=== PATIENT | female | born 1940 | race Hispanic/Latino ===

== ENCOUNTER 2025-02-04 19:52 | Observation (INO) | payer OTHER ==
[2025-02-04 20:48] LABS: Absolute Lymphocytes (CBC) 2.1 K/uL (0.7-4.9); Hematocrit 39.6 % (36.0-45.0); Hemoglobin 13.4 g/dL (12.0-15.0); MCH 31.2 pg (27.0-35.0); MCHC 33.9 g/dL (32.0-36.0); MCV 92.2 fL (80-100); MPV 8.5 fL (7.6-11.3); Nucleated RBC Absolute Count 0.0 (0-0); Nucleated Red Blood Cells % 0.0 % (0-0); RBC Red Blood Cell Count 4.30 M/uL (3.86-4.86); White Blood Count 5.50 thou/uL (4.3-10.9)
[2025-02-04] MEDS ORDERED: NA CHLORIDE 0.9% 500 ML ONE (20:50)
[2025-02-04 21:00] LABS: PT Prothrombin Time 11.3 SECONDS (10-13.0); Protime INR 1.0
[2025-02-04 21:16] LABS: ALT/SGPT 23 U/L (13-56); AST/SGOT 18 U/L (15-37); Albumin 3.3 g/dL (3.4-5.0); Albumin/Globulin Ratio 1.2 (1.1-1.8); Alkaline Phosphatase 118 U/L (45-117); Anion Gap 7.8 mEq/L (5.0-15.0); BUN Blood Urea Nitrogen 17 mg/dL (7-18); Globulin 2.7 g/dL (2.3-3.5); Glucose Level 86 mg/dL (74-106); Magnesium 2.1 mg/dL (1.6-2.4); NT PRO-BNP 193 pg/mL (<450); Potassium 3.8 mEq/L (3.5-5.1); Troponin High Sensitivity 5.7 pg/mL (<58.9)
--- NOTE | 2025-02-04 21:17 | RAD REPORT ---
EXAM: CT CHEST, ABDOMEN AND PELVIS WITHOUT CONTRAST CLINICAL INDICATION: fall, spinal injury TECHNIQUE: CT chest, abdomen and pelvis was performed without contrast, as per department protocol. A xial, sagittal and coronal reconstructions were obtained. One or more of the following dose reduction techniques were used: Automated exposure control, adjustment of the mA and/or kV according to patient size, and/or iterative reconstruction. Unless otherwise specified, incidental findings do not require dedicated imaging follow-up. Examination is limited by the lack of intravenous contrast material. COMPARISON: No prior exam. FINDINGS: LUNGS: No evidence of airspace or interstitial process. No nodules. Mild linear atelectasis in both l ksenia bases. PLEURA: No pleural effusion. No pneumothorax. MEDIASTINUM AND LYMPH NODES: No mediastinal mass or fluid collection. Normal size mediastinal, hilar, and axillary lymph nodes. Coronary atherosclerosis. OSSEOUS STRUCTURES AND CHEST WALL: Intact. LIVER: Normal in size and contour. No focal lesion or biliary dilatation. Cholelithiasis. PANCREAS: No mass, ductal dilation, or arabella-pancreatic fluid. SPLEEN: Normal size. No focal lesion. ADRENALS: Normal; no mass. KIDNEYS: Normal size and contour. No hydronephrosis. URINARY BLADDER: Normal contour. GASTROINTESTINAL TRACT: No bowel obstruction, free air, significant free fluid or abscess. Moderate stool is retained throughout the colon. APPENDIX: Normal appendix. LYMPH NODES: No lymphadenopathy. MUSCULOSKELETAL: Moderate degenerative change with dextroscoliosis lumbar spine. OTHER: 33 mm right ovarian follicle. IMPRESSION: No acute abnormalities seen in the chest, abdomen or pelvis. Cholelithiasis.
[2025-02-04 21:19] LABS: Bilirubin Indirect, Calculated 0.2 mg/dL (0.2-0.8); Thyroid Stimulating Hormone 9.980 uIU/mL (0.358-3.740)
--- NOTE | 2025-02-04 21:44 | RAD REPORT ---
EXAMINATION: ONE VIEW CHEST XR CLINICAL INDICATION: syncope TECHNIQUE: Frontal chest projection is submitted. Examination is limited by patient positioning and t echnique. COMPARISON: 08/30/2012 FINDINGS: Mild linear atelectasis is seen in the left lung base. The lungs are otherwise clear. The heart is no rmal in size. No displaced fractures identified. Diffuse osteopenia. IMPRESSION: No acute intrathoracic abnormalities.
--- NOTE | 2025-02-05 01:54 | ER ---
Nurse's Notes [facility] Name: Denis Guy Age: 84 yrs Sex: Female : 1940 Arrival Date: 02/04/2025 Time: 19:52 Bed 13 Private MD: Diagnosis: Syncope and collapse, acute fall at home, uncontrolled hypertension Presentation: 02/04 20:18 Chief complaint: EMS states: toned out for fall with AMS. Patient was on the phone with me1 family and they heard what sounded like her falling then she wouldn't answer. Family called pd for a wellness check and they ended up kicking in the door and found patient on the floor, awake but confused. Patient started to remember some things and reports that she took an ambien that had been prescribed to her a long time ago but that she doesn't normally take. ALUMINUM POLISHER patient was A\T\OX4 again and Denies any pain. No signs of injury noted on assessment. 20g to LFA established by EMS. Coronavirus screen: Vaccine status: Patient reports being unvaccinated. Ebola Screen: No symptoms or risks identified at this time. Initial Sepsis Screen: Does the patient meet any 2 criteria? No. Patient's initial sepsis screen is negative. Does the patient have a suspected source of infection? No. Patient's initial sepsis screen is negative. Risk Assessment: Do you want to hurt yourself or someone else? Patient reports no desire to harm self or others. Onset of symptoms was February 04, 2025. 20:18 Method Of Arrival: EMS: [place] [id number] 20:18 Acuity: AVIVA 3 me1 Triage Assessment: 20:22 General: Appears in no apparent distress. well groomed, well developed, well nourished, me1 Behavior is calm, cooperative, appropriate for age. Pain: Denies pain. EENT: No signs and/or symptoms were reported regarding the EENT system. Neuro: Level of Consciousness is awake, alert, obeys commands, Oriented to person, place, time, situation, Appropriate for age. Cardiovascular: Patient's skin is warm and dry. Respiratory: Airway is patent Respiratory effort is even, unlabored, Respiratory pattern is regular, symmetrical. GI: No signs and/or symptoms were reported involving the gastrointestinal system. : No signs and/or symptoms were reported regarding the genitourinary system. Derm: Skin is intact, is healthy with good turgor, Skin is normal. Musculoskeletal: Circulation, motion, and sensation intact. Range of motion: intact in all extremities. Injury Description: unwitnessed fall. Historical: - Allergies: 20:22 No Known Allergies; me1 - PMHx: 20:22 Hypothyroidism; Dementia; Bipolar disorder; Schizophrenia; me1 - PSHx: 20:22 Total abdominal hysterectomy; me1 - Immunization history:: Adult Immunizations up to date. - Infectious Disease History:: Denies. - Social history:: Smoking status: Patient denies any tobacco usage or history of. - Family history:: not pertinent. Screenin:23 [facility] ED Fall Risk Assessment (Adult) History of falling in the last 3 months, al1 including since admission Yes- single mechanical fall (1 pt) Confusion or Disorientation Yes (5 pts) Intoxicated or Sedated No (0 pts) Impaired Gait No (0 pts) Mobility Assist Device Used No (0 pt) Altered Elimination No (0 pt) Score/Fall Risk Level 0 - 2 = Low Risk Maintained a safe environment, Provided non-skid footwear, Hourly rounding (assess needs \T\ fall precautionary measures) done. Abuse screen: Denies threats or abuse. Nutritional screening: No deficits noted. Tuberculosis screening: No symptoms or risk factors identified. Assessment: 20:23 Reassessment: See triage assessment. me1 22:00 Reassessment: Patient and/or family updated on plan of care and expected duration. Pain nh2 level reassessed. Patient is alert, oriented x 3, equal unlabored respirations, skin warm/dry/pink. Patient denies pain at this time. 22:00 Neuro: Level of Consciousness is awake, alert, obeys commands. Cardiovascular: nh2 Patient's skin is warm and dry. Rhythm is sinus rhythm. Respiratory: Respiratory effort is even, unlabored. GI: Abdomen is round non-distended. : No signs and/or symptoms were reported regarding the genitourinary system. EENT: No signs and/or symptoms were reported regarding the EENT system. Derm: Skin is fragile, Skin is pink, warm \T\ dry. Musculoskeletal: Circulation, motion, and sensation intact. 22:17 Reassessment: non-slip socks applied. assisted to the restroom, ambulatory with help of nh2 family and RN. 22:25 Reassessment: patient back in bed from restroom. reconnected monitor, call light placed nh2 within reach. denies needs or concerns. 02/05 01:15 Reassessment: Patient appears in no apparent distress at this time. Patient and/or km10 family updated on plan of care and expected duration. Pain level reassessed. Patient is alert, oriented x 3, equal unlabored respirations, skin warm/dry/pink. assuming care as primary RN at this time. 04:28 Reassessment: Patient appears in no apparent distress at this time. No changes from [facility] previously documented assessment. Patient and/or family updated on plan of care and expected duration. Pain level reassessed. 06:14 Reassessment: Patient appears in no apparent distress at this time. No changes from [facility] previously documented assessment. Patient and/or family updated on plan of care and expected duration. Pain level reassessed. Vital Signs: 02/04 20:18 BP 205 / 83; Pulse 64; Resp 18; Temp 97.5; Pulse Ox 98% ; Weight 53.52 kg; Height 5 ft. me1 4 in. ; Pain 0/10; 21:00 BP 209 / 80; Pulse 65; Resp 15; Pulse Ox 98% ; me1 21:56 BP 182 / 77; Pulse 65; Resp 20; Pulse Ox 99% ; me1 22:20 BP 172 / 76; Pulse 72; Resp 18; Pulse Ox 99% on R/A; nh2 02/05 01:15 BP 154 / 59; Pulse 56; Resp 14 S; Pulse Ox 98% ; 10 04:28 BP 120 / 44; Pulse 54; Resp 14 S; Pulse Ox 97% ; 10 02/04 20:18 Body Mass Index 20.25 (53.52 kg, 162.56 cm) al1 02/04 20:18 Pain Scale: Adult me1 [place] Coma Score: 21:41 Eye Response: spontaneous(4). Verbal Response: oriented(5). Motor Response: obeys sp4 commands(6). Total: 15. NIH Stroke Scale Scores: 21:41 NIHSS Score: 0 sp4 ED Course: 02/04 20:08 Patient arrived in ED. im 20:18 Lizet Yap, RN is Primary Nurse. al1 20:19 Antoine Scott MD is Attending Physician. sp4 20:22 Triage completed. me1 20:22 Arm band placed on Patient placed in an exam room. me1 20:23 Patient has correct armband on for positive identification. Bed in low position. Call me1 light in reach. Side rails up X2. Provided Education on: POC. Verbalized understanding.. Client placed on continuous cardiac and pulse oximetry monitoring. NIBP monitoring applied. front desk monitor on. Pulse ox on. NIBP on. 20:23 No provider procedures requiring assistance completed. Maintain EMS IV. Dressing me1 intact. Good blood return noted. Site clean \T\ dry. Gauge \T\ site: 20g LFA. Flushed with 10 mL NS. 20:41 Initial lab(s) drawn, by al, sent to lab. me1 20:41 Basic Metabolic Panel Sent. me1 20:41 CBC with Diff Sent. me1 20:41 LFT's Sent. me1 20:41 Magnesium Sent. me1 20:41 NT PRO-BNP Sent. me1 20:41 PT-INR Sent. me1 20:53 EKG done, by ED staff, reviewed by Antoine Scott MD. me1 20:56 CT Chest Abdomen Pelvis W/O Contrast In Process Unspecified. EDMS 21:17 XRAY Chest (1 view) In Process Unspecified. EDMS 02/05 01:53 Michael Keller MD is Hospitalizing Provider. sp4 02:31 Head C Spine Mpr Wo Con In Process Unspecified. EDMS 06:15 Report given to Heidy CARLSON. km10 06:15 Patient admitted, IV remains in place. km10 Administered Medications: 02/04 21:17 Drug: NS 0.9% IV 500 ml 500 ml IV at 1 bolus once; to be given as a bolus over 30 me1 minutes Volume: 500 ml; Route: IV; Rate: 1 bolus; Site: left forearm; 21:56 Follow up: Response: No adverse reaction; IV Status: Completed infusion me1 21:17 Drug: cloNIDine PO 0.2 mg PO once Route: PO; me1 22:10 Follow up: Response: No adverse reaction; Blood pressure is lowered nh2 02/05 01:55 CANCELLED (Physician Discretion): clonidine0.1 mg PO once sp4 02:36 Drug: Losartan PO 25 mg PO once Route: PO; km10 04:29 Follow up: Response: No adverse reaction km10 Medication: 02/04 20:23 VIS not applicable for this client. me1 Outcome: 02/05 01:54 Decision to Hospitalize by Provider. sp4 06:15 Admitted to ICU accompanied by nurse, family with patient, via stretcher, room -7, km10 Report called to Heidy CARLSON 06:15 Condition: stable 06:15 Discharge instructions given to patient, family, Instructed on the need for admit, Demonstrated understanding of instructions, 06:25 Patient left the ED. vc1 NIH Stroke Scale - NIH Stroke Score Date: 02/05/2025 Time: 21:41 Total Score = 0 1a. Level of Consciousness (LOC) - 0(Alert) 1b. Level of Consciousness (LOC) (Month \T\ Age) - 0(Both) 1c. LOC Commands (Open \T\ Closes Eyes/Front Desk Clerk) - 0(Both) 2. Best Gaze (Lateral Gaze Paresis) - 0(Normal) 3. Visual Field Loss - 0(No visual loss) 4. Facial Palsy - 0(Normal) 5a. Left Arm: Motor (10-second hold) - 0(No drift) 5b. Right Arm: Motor (10-second hold) - 0(No drift) 6a. Left Leg: Motor (5-second hold - always test supine) - 0(No drift) 6b. Right Leg: Motor (5-second hold - always test supine) - 0(No drift) 7. Limb Ataxia (finger/nose \T\ heel/soria - test with eyes open) - 0(Absent) 8. Sensory Loss (pinprick arms/legs/face) - 0(Normal) 9. Best Language: Aphasia (description/naming/reading) - 0(No aphasia) 10. Dysarthria (speech clarity - read or repeat words) - 0(Normal) 11. Extinction and Inattention (visual/tactile/auditory/spatial/personal) - 0(No abnormality) Initials: sp4 Signatures: Dispatcher [employer] EDJaleesa Lind RN RN vc1 Antoine Scott MD MD sp4 Yolanda Lipscomb Michelle, RN RN me1 Cory Crooks Jr, RN RN [facility] John, Caryn, RN RN km10 Corrections: (The following items were deleted from the chart) 02/04 21:42 20:41 CREATINE PHOSPHOKINASE+C.LAB.BRZ drawn and sent. me1 EDMS : 22:17 Reassessment: assisted to the restroom, ambulatory with help of family nh2 and RN nh2 22:20 BP 148 / 76; Pulse 72bpm; Resp 18bpm; Pulse Ox 99% RA; nh2 nh2 02/05 04:29 01:15 Reassessment: assuming care as primary RN at this time [place] [id number] 04:28 Reassessment: Patient appears in no apparent distress at this time. No km10 changes from previously documented assessment. Patient and/or family updated on plan of care and expected duration. Pain level reassessed. Patient is alert, oriented x 3, equal unlabored respirations, skin warm/dry/pink. 10 06:16 06:15 Admitted to ICU accompanied by nurse, family with patient, via stretcher, km10 room 1, Report called to Heidy CARLSON km10
--- NOTE | 2025-02-05 01:54 | EDPHYS ---
Physician Documentation [facility] Name: Denis Guy Age: 84 yrs Sex: Female : 1940 Arrival Date: 02/04/2025 Time: 19:52 Bed 13 Private MD: ED Physician Antoine Scott HPI: 02/04 20:19 This 84 yrs old Female presents to ER via Unassigned with complaints of Fall sp4 Injury. 02/05 21:41 Very pleasant 84-year-old female presents with complaint of acute syncopal episode at sp4 home. Patient presents with EMS. Patient reports she doesn't have any known medical problems. She presents with elevated blood pressure. EMS and family reports that patient sustained a fall in her apartment. She was found laying on the floor by her family who had to invite police to break her apartment door. On arrival patient complains of posterior headache and head contusion, also posterior spinal pain.. Historical: - Allergies: 02/04 20:22 No Known Allergies; me1 - PMHx: 20:22 Hypothyroidism; Dementia; Bipolar disorder; Schizophrenia; me1 - PSHx: 20:22 Total abdominal hysterectomy; me1 - Immunization history:: Adult Immunizations up to date. - Infectious Disease History:: Denies. - Social history:: Smoking status: Patient denies any tobacco usage or history of. - Family history:: not pertinent. ROS: 02/05 21:41 Constitutional: Negative for fever, chills, and weight loss, positive syncope and sp4 collapse, positive for fall at home, positive head injury, positive posterior back and spinal pain All other systems are negative, Exam: 21:41 Constitutional: This is a well developed, well nourished patient who is awake, alert, sp4 and in no acute distress. Head/Face: Normocephalic, atraumatic. Eyes: Pupils equal round and reactive to light, extra-ocular motions intact. Lids and lashes normal. Conjunctiva and sclera are not injected. Cornea within normal limits. Periorbital areas with no swelling, redness, or edema. ENT: Nares patent. No nasal discharge, no septal abnormalities noted. Tympanic membranes are normal and external auditory canals are clear. Oropharynx with no redness, swelling, or masses, exudates, or evidence of obstruction, uvula midline. Mucous membranes moist. Neck: Trachea midline, no thyromegaly or masses palpated, and no cervical lymphadenopathy. Supple, full range of motion without nuchal rigidity, or vertebral point tenderness. Chest/axilla: Normal chest wall appearance and motion. Nontender with no deformity. No lesions are appreciated. Cardiovascular: Regular rate and rhythm with a normal S1 and S2. No gallops, murmurs, or rubs. No pulse deficits. Respiratory: Lungs have equal breath sounds bilaterally, clear to auscultation and percussion. No rales, rhonchi or wheezes noted. No increased work of breathing, no retractions or nasal flaring. Abdomen/GI: Soft, with normal bowel sounds. No distension or tympany. No guarding or rebound. No evidence of tenderness throughout. Back: No spinal tenderness. No costovertebral tenderness. Skin: Warm, dry with normal turgor. Normal color with no rashes, no lesions, and no evidence of cellulitis. MS/ Extremity: Pulses equal, no cyanosis. Neurovascular intact. Full, normal range of motion. Neuro: Awake and alert, GCS 15, oriented to person, place, time, and situation. Cranial nerves II-XII grossly intact. Motor strength 5/5 in all extremities. Sensory grossly intact. Psych: Awake, alert, with orientation to person, place and time. Behavior, mood, and affect are within normal limits 21:44 ECG was reviewed by the Attending Physician. EKG at 2045 normal sinus rhythm rate 64 sp4 normal EKG Vital Signs: 02/04 20:18 BP 205 / 83; Pulse 64; Resp 18; Temp 97.5; Pulse Ox 98% ; Weight 53.52 kg; Height 5 ft. me1 4 in. ; Pain 0/10; 21:00 BP 209 / 80; Pulse 65; Resp 15; Pulse Ox 98% ; me1 21:56 BP 182 / 77; Pulse 65; Resp 20; Pulse Ox 99% ; me1 22:20 BP 172 / 76; Pulse 72; Resp 18; Pulse Ox 99% on R/A; nh2 02/05 01:15 BP 154 / 59; Pulse 56; Resp 14 S; Pulse Ox 98% ; km10 04:28 BP 120 / 44; Pulse 54; Resp 14 S; Pulse Ox 97% ; km10 02/04 20:18 Body Mass Index 20.25 (53.52 kg, 162.56 cm) sc1 02/04 20:18 Pain Scale: Adult me1 NIH Stroke Scale Scores: 21:41 NIHSS Score: 0 sp4 [place] Coma Score: 21:41 Eye Response: spontaneous(4). Verbal Response: oriented(5). Motor Response: obeys sp4 commands(6). Total: 15. MDM: 02/04 20:20 Medical Screening Exam initiated sp4 02/05 21:41 Differential diagnosis: abrasion, closed head injury, contusion, fracture, laceration, sp4 multiple trauma, sprain, strain. Data reviewed: vital signs, nurses notes, EMS record, old medical records, lab test result(s), EKG, radiologic studies, CT scan, plain films. Consideration of Admission/Observation Patient was admitted/placed on observation. Escalation of care including admission/observation considered. Management of patient was discussed with the following: Hospitalist: Josh PRICER . ED course: Patient stable for admission for workup of syncopal episode. Elevated blood pressure was controlled with p.o. clonidine.. 21:44 ED course: Critical care billed for management of acute hypertensive emergency.. 4 02/04 20:20 Order name: Basic Metabolic Panel; Complete Time: 01: 4 02/04 20:20 Order name: CBC with Diff; Complete Time: : sp4 02/04 20:20 Order name: LFT's; Complete Time: 01: sp4 02/04 20:20 Order name: Magnesium; Complete Time: 01: 4 02/04 20:20 Order name: NT PRO-BNP; Complete Time: 01:37 sp4 02/04 20:20 Order name: PT-INR; Complete Time: 01:37 sp4 02/04 20:20 Order name: Troponin HS; Complete Time: 01: 4 02/04 20:20 Order name: TSH; Complete Time: : sp4 02/04 20:20 Order name: T4 Free; Complete Time: : sp4 02/04 21:42 Order name: Creatine Phosphokinase; Complete Time: 01: EDMS 02/05 05:30 Order name: CBC with Automated Diff EDMS 02/05 05:30 Order name: CBC with Automated Diff EDMS 02/05 05:30 Order name: CBC with Automated Diff EDMS 02/05 05:30 Order name: Comprehensive Metabolic Panel EDMS 02/05 05:30 Order name: Comprehensive Metabolic Panel EDMS 02/05 05:31 Order name: Comprehensive Metabolic Panel EDMS 02/05 05:31 Order name: Magnesium EDMS 02/05 05:31 Order name: Magnesium EDMS 02/05 05:31 Order name: Magnesium EDMS 02/04 20:20 Order name: XRAY Chest (1 view); Complete Time: 01:37 sp4 02/04 20:30 Order name: CT Chest Abdomen Pelvis W/O Contrast; Complete Time: 01:37 sp4 02/05 01:59 Order name: Head C Spine Mpr Wo Con EDMS 02/05 05:24 Order name: Brain With Cont EDMS 02/05 05:24 Order name: Brain With Cont EDMS 02/05 05:25 Order name: Carotid Artery Bilateral EDMS 02/05 05:25 Order name: Carotid Artery Bilateral EDMS 02/05 05:25 Order name: Carotid Artery Bilateral EDMS 02/04 20:20 Order name: EKG; Complete Time: 20:21 sp4 02/04 20:20 Order name: Cardiac monitoring; Complete Time: 20:53 sp4 02/04 20:20 Order name: EKG - Nurse/Tech; Complete Time: 20:53 sp4 02/04 20:20 Order name: IV Saline Lock; Complete Time: 20:41 sp4 02/04 20:20 Order name: Labs collected and sent; Complete Time: 20:41 sp4 02/04 20:20 Order name: O2 Per Protocol; Complete Time: 20:41 sp4 02/04 20:20 Order name: O2 Sat Monitoring; Complete Time: 20:41 sp4 EC/28 20:46 Rate is 64 beats/min. Rhythm is regular, Normal Sinus Rhythm. QRS [place] is Normal. ME sp4 interval is normal. QRS interval is normal. QT interval is normal. No Q waves. T waves are Normal. No ST changes noted. Clinical impression: Normal ECG. Interpreted by me. Reviewed by me. Administered Medications: 21:17 Drug: NS 0.9% IV 500 ml 500 ml IV at 1 bolus once; to be given as a bolus over 30 me1 minutes Volume: 500 ml; Route: IV; Rate: 1 bolus; Site: left forearm; 21:56 Follow up: Response: No adverse reaction; IV Status: Completed infusion me1 21:17 Drug: cloNIDine PO 0.2 mg PO once Route: PO; me1 22:10 Follow up: Response: No adverse reaction; Blood pressure is lowered nh2 02/05 01:55 CANCELLED (Physician Discretion): clonidine0.1 mg PO once sp4 02:36 Drug: Losartan PO 25 mg PO once Route: PO; km10 04:29 Follow up: Response: No adverse reaction km10 Disposition: 21:44 Chart complete. sp4 Disposition Summary: 02/05/25 01:54 Hospitalization Ordered Notes: Hospitalization Status: Inpatient Admission sp4 Provider: Michael Keller sp4 Condition: Stable sp4 Problem: new sp4 Symptoms: have improved sp4 Bed/Room Type: Standard sp4 Location: Intensive Care Unit(02/05/25 05:57) cg Room Assignment: 7-(02/05/25 05:57) cg Diagnosis - Syncope and collapse, acute fall at home, uncontrolled hypertension sp4 Forms: - Medication Reconciliation Form sp4 - SBAR form sp4 - Leadership Thank You Letter sp4 Critical care time excluding procedures: 21:44 Critical care time: Bedside Care: 26 minutes, Consultation: 12 minutes, Family sp4 Intervention: 12 minutes. Total time: 50 minutes NIH Stroke Scale - NIH Stroke Score Date: 02/05/2025 Time: 21:41 Total Score = 0 1a. Level of Consciousness (LOC) - 0(Alert) 1b. Level of Consciousness (LOC) (Month \T\ Age) - 0(Both) 1c. LOC Commands (Open \T\ Closes Eyes/Auto Transmission Specialist) - 0(Both) 2. Best Gaze (Lateral Gaze Paresis) - 0(Normal) 3. Visual Field Loss - 0(No visual loss) 4. Facial Palsy - 0(Normal) 5a. Left Arm: Motor (10-second hold) - 0(No drift) 5b. Right Arm: Motor (10-second hold) - 0(No drift) 6a. Left Leg: Motor (5-second hold - always test supine) - 0(No drift) 6b. Right Leg: Motor (5-second hold - always test supine) - 0(No drift) 7. Limb Ataxia (finger/nose \T\ heel/soria - test with eyes open) - 0(Absent) 8. Sensory Loss (pinprick arms/legs/face) - 0(Normal) 9. Best Language: Aphasia (description/naming/reading) - 0(No aphasia) 10. Dysarthria (speech clarity - read or repeat words) - 0(Normal) 11. Extinction and Inattention (visual/tactile/auditory/spatial/personal) - 0(No abnormality) Initials: sp4 Signatures: Dispatcher [employer] EDBrooklynn Wetzel, RN RN Antoine Scott MD MD sp4 Lizet Yap RN RN sc1 Caryn Lopez RN RN km10 Valeriy Franklin, Cory RN nh2 Corrections: (The following items were deleted from the chart) 02/04 20:21 20:20 BASIC METABOLIC PANEL+C.LAB.BRZ ordered. EDMS EDMS 20:21 20:20 CBC+H.LAB.BRZ ordered. EDMS EDMS 20:21 20:20 HEPATIC FUNCTION+C.LAB.BRZ ordered. EDMS EDMS 20:21 20:20 MAGNESIUM+C.LAB.BRZ ordered. EDMS EDMS 20:21 20:20 PROBNP+C.LAB.BRZ ordered. EDMS EDMS 20:21 20:20 PROTIME (+INR)+COAG.LAB.BRZ ordered. EDMS EDMS 20:21 20:20 Troponin High Sensitivity+C.LAB.BRZ ordered. EDMS EDMS 20:21 20:21 Chest Single View+RAD.RAD.BRZ ordered. EDMS EDMS 21:42 20:31 CREATINE PHOSPHOKINASE+C.LAB.BRZ ordered. EDMS EDMS 02/05 01:55 01:37 cloNIDine PO 0.1 mg PO once ordered. sp4 sp4 02:36 01:54 Telemetry/MedSurg (Inpatient) sp4 cg 02:36 01:54 sp4 cg 05:56 02:36 [facility] ER HOLD cg cg 05:56 02:36 ERHOLD- cg cg 05:57 05:56 Telemetry/MedSurg (Inpatient) cg cg 05:57 05:56 cg cg
[2025-02-05] MEDS ORDERED: LOSARTAN POTASSIUM 50 MG TABLET ONE (02:14)
[2025-02-05] MEDS ORDERED: ACETAMINOPHEN 325 MG TABLET PO PRN (05:25)
[2025-02-05] MEDS: NA CHLORIDE 0.9% 1,000 ML IV SCH (06:00)
[2025-02-05] MEDS ORDERED: NA CHLORIDE 0.9% 1,000 ML ONE (06:03)
--- NOTE | 2025-02-05 06:06 | RAD REPORT ---
EXAM DESCRIPTION: Head C Spine Mpr Wo Con CLINICAL HISTORY: Fall, pain. COMPARISON: None Available TECHNIQUE: Contiguous axial images of the head and cervical spine were obtained without the administration of in travenous contrast followed by reconstruction images. This exam was performed according to our departmental dose-optimization program, which includes automated exposure control, adjustment of the mA and/or kV according to patient size and/or use of iterative reconstruction technique. FINDINGS: HEAD: Generalized parenchymal volume loss. No hydrocephalus. No midline shift. The basal cisterns are paten t. No abnormal extra axial collection. No acute intracranial hemorrhage or developing territorial infarct. 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 Preserved encarnacion-white differentiation. Scattered chronic microangiopathic ischemic white matter changes. Orbital contents are unremarkable. The paranasal sinuses and mastoid air cells are well pneumatized. No acute calvarial abnormality. CERVICAL: Anatomic alignment. Vertebral body heights are maintained. No spondylolisthesis, fracture or destruct enrique osseous lesion. Endplates are well-visualized and the posterior elements are intact. The atlantoaxial relationship is preserved. Multilevel cervical spondylosis. Prevertebral and paraspinous soft tissues are normal. No apical pneumothorax. IMPRESSION: 1. No acute intracranial pathology. 2. No acute fracture or traumatic malalignment of the cervical spine. Electronically signed by: Harman Singletary MD 02/05/2025 03:26 AM CDT Due to temporary technical issues with the [employer] reporting system, reports are being niki d by the in-house radiologist without review as a courtesy to ensure prompt reporting the interpreting radiologist is fully responsible for the content of the report. Transcribed Date/Time: 02/05/2025 6:05 AM
--- NOTE | 2025-02-05 06:41 | P.HP ---
Certification for Inpatient Patient admitted to: Observation With expected LOS: <2 Midnights Patient will require the following post-hospital care: None Practitioner: I am a practitioner with admitting privileges, knowledge of patient current condition, hospital course, and medical plan of care. Services: Services provided to patient in accordance with Admission requirements found in Title 42 Section 412.3 of the Code of Federal Regulations Patient History Date of Service: 02/05/25 Reason for admission: Syncope, hypertension. History of Present Illness: Patient is an 84-year-old female with past medical history of essential hypertension, brought to ER today by daughter, after patient had a syncope episode at home, and hypertension. Upon arrival to ER, patient's systolic blood pressures was in the 200s, received clonidine 0.2 mg, losartan 50 mg with positive results. According to her daughter present at bedside, she states patient was found on the floor after they break down the door to get into the house, states when they found the patient on the floor, initially she was disoriented, but eventually got back to her normal self. She also states patient has some underlying diagnosed dementia, but not currently on any medication for dementia. When patient was seen in the ER for admission assessment this morning, patient was awake, alert and oriented to her name, place, and time, patient extremely hard of hearing. Patient denies of any associated chest pain, shortness of breath, headaches, nausea or vomiting, and appears not to be in any acute distress this time. Course in ER. (1) CT chest/abdomen and pelvis. Impression: No acute abnormality seen in the chest, abdomen or pelvis. Cholelithiasis. (2) chest x-ray. Impression: No acute intrathoracic abnormalities. (3) CT head and C-spine. Impression: No acute intracranial pathology. No acute fracture or traumatic malalignment of the cervical spine Allergies No Known Allergies Allergy (Unverified 08/30/12 12:36) - Past Medical/Surgical History -: Essential hypertension. -: Falls. -: Hysterectomy. - Social History Smoking Status: Never smoker Alcohol use: No CD- Drugs: No Caffeine use: Yes Place of Residence: Home Review of Systems 10-point ROS is otherwise unremarkable Physical Examination - Physical Exam General: Alert, In no apparent distress, Oriented x3, Cooperative, Other (Extremely hard of hearing.) HEENT: Atraumatic, Normocephalic, PERRLA, Mucous membr. moist/pink, Sclerae nonicteric Neck: Supple, 2+ carotid pulse no bruit, JVD not distended, No Thyromegaly, No LAD, Without JVD or thyroid abnormality Respiratory: Clear to auscultation bilaterally, Normal air movement Cardiovascular: No edema, Normal pulses, Regular rate/rhythm, Normal S1 S2, No gallops, No rubs, No murmurs Capillary refill: <2 Seconds Gastrointestinal: Normal bowel sounds, Soft and benign, Non-distended, W/out hepatomegaly, No ascites, No tenderness, No masses, No rebound, No guarding Musculoskeletal: No clubbing, No swelling, No contractures, No erythema, No tenderness, No warmth Integumentary: No rashes, No breakdown, No significant lesion, No tenderness/swelling, No erythema, No warmth, No cyanosis Neurological: Normal speech, Normal strength at 5/5 x4 extr, Normal tone, Sensation intact, Normal reflexes 2+, Normal affect, Other (Very hard of hearing.), Dementia (Diagnosed dementia but not currently on any medication.) Lymphatics: No axilla or inguinal lymphadenopathy - Studies Laboratory Data (last 24 hrs) 02/04/25 02/04/25 02/04/25 20:32 20:32 20:32 WBC 5.50 Hgb 13.4 Hct 39.6 Plt Count 241 PT 11.3 INR 1.00 Sodium 139 Potassium 3.8 BUN 17 Creatinine 0.51 L Glucose 86 Magnesium 2.1 Total Bilirubin 0.4 AST 18 ALT 23 Alkaline Phosphatase 118 H Female Exam - Breasts Breasts: Normal configuration, Normal contours, Symmetrical Assessment and Plan - Plan Patient admitted with syncope, hypertension Assessment/ Plan (1)Syncope/hypertension. -MRI head/ Brain with contrast. -Consult neurologist Dr. Estes. -Bilateral carotid ultrasound. - Order amlodipine 5 mg p.o. twice daily. -IV 75 mL/ hr x 1 L. Patient has dry mucous membrane, appears volume depleted (2) DVT prophylaxis. - Lovenox 40 mg subcu daily. (3)Explained entire treatment plan to the patient, and daughter present at bedside, solicited questions answered. Discharge Plan: Home Plan to discharge in: 48 Hours - Advance Directives Does patient have a Living Will: No Does patient have a Durable POA for Healthcare: No - Code Status/Comfort Care Code Status: Full Code Critical Care: No Time Spent Managing Pts Care (In Minutes): 55
[2025-02-05 07:22] VITALS: BMI 20.2
[2025-02-05] MEDS: ENOXAPARIN 40 MG/0.4 ML SQ SCH (07:53)
[2025-02-05] MEDS: AMLODIPINE 5 MG TAB PO SCH (07:53)
[2025-02-05 08:09] VITALS: O2SAT 97
--- NOTE | 2025-02-05 14:58 | P.PN ---
Date of Service: 02/05/25 Patient seen and examined. He is awake and alert and interactive. History of syncopal episodes, associated confusion. Patient has a baseline history of dementia. Daughter also reports patient has been exhibiting paranoia, and she has been noncompliant with her psychiatric medications. Plan: Check orthostatic vitals MRI of the brain is pending Carotid Doppler result is pending. Case discussed with neurology Dr. Estes, ruling out seizures with EEG. Neurochecks. Resume home dose of Seroquel and thyroid replacement therapy. Telemetry.
--- NOTE | 2025-02-05 15:17 | RAD REPORT ---
EXAMINATION: US CAROTID DUPLEX CLINICAL INDICATION: , 84 years old. Syncope.. TECHNIQUE: Real-time grayscale, color flow and spectral Doppler sonographic images were obtained of t extracranial carotid system using a linear transducer. [id number]. COMPARISON: No prior exam. FINDINGS: RIGHT: Common carotid artery: 90 cm/s Internal carotid artery: 86 cm/s External carotid artery: 105 cm/s Right ICA/CCA ratio: 1.0 Plaque Moderate Calcified and noncalcified Vertebral artery Antegrade LEFT: Common carotid artery: 65 cm/s Internal carotid artery: 98 cm/s External carotid artery: 83 cm/s lEFT ICA/CCA ratio: 1.5 Plaque Moderate Calcified and noncalcified Vertebral artery Antegrade IMPRESSION: No hemodynamically significant stenosis (greater than 50%) within the extracranial internal carotid [facility].
--- NOTE | 2025-02-05 15:53 | RAD REPORT ---
EXAMINATION: Brain Wo Cont CLINICAL INDICATION: Female, 84 years old. Syncope. TECHNIQUE: Multiplanar multisequence MR images of the brain were obtained without intravenous contras t. Unless otherwise specified, incidental findings do not require dedicated imaging follow-up. [id number]. COMPARISON: 02/05/2025 FINDINGS: INTRACRANIAL: No acute infarct identified. No significant mass effect or midline shift.No hydrocepha jimmy. No significant white matter disease. Moderate cerebral atrophy. VASCULATURE: Normal signal voids in the larger intracranial arteries and dural venous sinuses. SINUSES: The paranasal sinuses are predominantly clear. No mastoid effusions. BONE: The marrow signal pattern is within normal limits. IMPRESSION: No acute intracranial abnormality. Specifically, no evidence of acute infarct.
[2025-02-05] MEDS: QUETIAPINE 25 MG TAB PO SCH (20:11)
[2025-02-06 05:33] LABS: Absolute Lymphocytes (CBC) 1.8 K/uL (0.7-4.9); Hematocrit 37.4 % (36.0-45.0); Hemoglobin 12.8 g/dL (12.0-15.0); MCH 31.5 pg (27.0-35.0); MCHC 34.2 g/dL (32.0-36.0); MCV 92.0 fL (80-100); MPV 8.4 fL (7.6-11.3); Nucleated RBC Absolute Count 0.0 (0-0); Nucleated Red Blood Cells % 0.2 % (0-0); RBC Red Blood Cell Count 4.07 M/uL (3.86-4.86); White Blood Count 4.50 thou/uL (4.3-10.9)
[2025-02-06] MEDS: THYROID 30 MG TAB PO SCH (05:50)
[2025-02-06 05:54] LABS: ALT/SGPT 19.0 U/L (13-56); AST/SGOT 19.0 U/L (15-37); Albumin 2.8 g/dL (3.4-5.0); Albumin/Globulin Ratio 1.2 (1.1-1.8); Alkaline Phosphatase 98.0 U/L (45-117); Anion Gap 7.5 mEq/L (5.0-15.0); BUN Blood Urea Nitrogen 7.0 mg/dL (7-18); Globulin 2.4 g/dL (2.3-3.5); Glucose Level 92.0 mg/dL (74-106); Magnesium 1.9 mg/dL (1.6-2.4); Potassium 3.5 mEq/L (3.5-5.1)
[2025-02-06] MEDS: POTASSIUM CL SA 10 MEQ TAB PO ONE (08:04)
[2025-02-06 10:00] VITALS: TEMP 97.8
[2025-02-06] MEDS ORDERED: HYDRALAZINE HCL 20 MG/ML VIAL IV PRN (12:26)
--- NOTE | 2025-02-06 12:47 | EEG ---
CHART: [id number] TEST ID#: [id number] DATE OF STUDY: 02/05/2025 THE EEG WAS RECORDED PORTABLE IN THE ICU ON A 17 CHANNEL MACHINE. ELECTRODES WERE APPLIED IN THE USUAL MANNER USING THE INTERNATIONAL 10-20 SYSTEM. THE WAKING BACKGROUND RHYTHM IN THIS RECORD CONSISTS OF VERY WELL DEVELOPED AND WELL ORGANIZED WAVES OF 9.5 HZ., MAXIMAL IN THE POSTERIOR HEAD REGIONS WHICH ATTENUATE NORMALLY WITH EYE OPENING. LOW-VOLTAGE 18-22 HZ ACTIVITY IS EXPRESSED IN THE FRONTAL REGIONS. THERE ARE NO FOCAL OR LATERALIZING FEATURES. NO EPILEPTIFORM ACTIVITY APPEARS. SLEEP OCCURRED NATURALLY. IN ADDITION TO NORMAL SLEEP PATTERNS ARE PRESENT. HYPERVENTILATION WAS NOT PERFORMED. PHOTIC STIMULATION PRODUCED FAIR DRIVING BILATERALLY. IMPRESSION: NORMAL EEG FOR THE AGE OF THE PATIENT IN [place], DROWSINESS AND SLEEP.
[2025-02-06 12:59] VITALS: BP 164/62
[2025-02-06] MEDS: AMLODIPINE 5 MG TAB PO ONE (13:09)
--- NOTE | 2025-02-06 13:53 | P.DS ---
Admission Date: 02/05/25 Discharge Date: 02/06/25 Disposition: ROUTINE DISCHARGE Discharge Condition: FAIR Reason for Admission: Syncope, hypertension. Hospital Course: Diagnosis Syncope Malignant hypertension History of schizophrenia Alzheimer dementia. Patient with a history of essential hypertension and dementia, brought to ER for a syncope episode at home. She was found on the floor disoriented. Patient's systolic blood pressures was in the 200s in the ED, she received clonidine 0.2 mg, losartan 50 mg with BP improvement. Patient was awake and alert during examination in the ER. CT chest/abdomen and pelvis done in the emergency department showed no acute abnormality seen in the chest, abdomen or pelvis. CT head and C-spine showed no acute intracranial pathology. Patient was admitted to the medical floor, noted to be hypertensive so she was started on amlodipine for blood pressure control. MRI of the brain did not show any acute disease, no stroke. EEG done according to neurology recommendation did not show any seizure spikes. Orthostatic vitals checked was negative Patient remained awake and alert, no seizures, she was ambulatory without support during the hospital stay. Severe BP elevations improved with antihypertensives. Daughter reports patient has a history of schizophrenia but has been noncompliant with her medications. Patient is on Seroquel which was restarted during the hospital stay. Vital Signs/Physical Exam: Temp Pulse Resp BP Pulse Ox 97.8 F 78 19 164/62 H 97 02/06/25 08:00 02/06/25 13:09 02/06/25 12:00 02/06/25 13:09 02/06/25 12:00 General: Alert, In no apparent distress, Oriented x3 HEENT: Mucous membr. moist/pink, Sclerae nonicteric Neck: Supple, JVD not distended Respiratory: Clear to auscultation bilaterally, Normal air movement Cardiovascular: No edema, Regular rate/rhythm, Normal S1 S2, No murmurs Capillary refill: <2 Seconds Gastrointestinal: Normal bowel sounds, Soft and benign, Non-distended, No tenderness Musculoskeletal: No swelling Integumentary: No rashes, No cyanosis Neurological: Normal speech, Normal strength at 5/5 x4 extr, Cranial nerves 3-12 intact Laboratory Data at Discharge: WBC 4.50 thou/uL (4.3-10.9) 02/06/25 05:08 Hgb 12.8 g/dL (12.0-15.0) 02/06/25 05:08 Hct 37.4 % (36.0-45.0) 02/06/25 05:08 Plt Count 246 thou/uL (152-406) 02/06/25 05:08 PT 11.3 SECONDS (10-13.0) 02/04/25 20:32 INR 1.00 02/04/25 20:32 Sodium 144 mEq/L (136-145) 02/06/25 05:08 Potassium 3.5 mEq/L (3.5-5.1) 02/06/25 05:08 BUN 7 mg/dL (7-18) 02/06/25 05:08 Creatinine 0.37 mg/dL (0.55-1.02) L 02/06/25 05:08 Glucose 92 mg/dL (74-106) 02/06/25 05:08 Magnesium 1.9 mg/dL (1.6-2.4) 02/06/25 05:08 Total Bilirubin 0.4 mg/dL (0.2-1.0) 02/06/25 05:08 AST 19 U/L (15-37) 02/06/25 05:08 ALT 19 U/L (13-56) 02/06/25 05:08 Alkaline Phosphatase 98 U/L (45-117) 02/06/25 05:08 Home Medications: Amlodipine [Norvasc*] 10 mg PO DAILY #30 tab 02/06/25 Quetiapine [Seroquel*] 25 mg PO BEDTIME #30 tab 02/06/25 Thyroid Tab [[place] Thyroid*] 15 mg PO DAILY@0600 #30 tab 02/06/25 New Medications: Thyroid Tab [[place] Thyroid*] 15 mg PO DAILY@0600 #30 tab Amlodipine [Norvasc*] 10 mg PO DAILY #30 tab Quetiapine [Seroquel*] 25 mg PO BEDTIME #30 tab Physician Discharge Instructions: Patient with a history of essential hypertension and dementia, brought to ER for a syncope episode at home. She was found on the floor disoriented. Patient's systolic blood pressures was in the 200s in the ED, she received clonidine 0.2 mg, losartan 50 mg with BP improvement. Patient was awake and alert during examination in the ER. CT chest/abdomen and pelvis done in the emergency department showed no acute abnormality seen in the chest, abdomen or pelvis. CT head and C-spine showed no acute intracranial pathology. Patient was admitted to the medical floor, noted to be hypertensive so she was started on amlodipine for blood pressure control. MRI of the brain did not show any acute disease, no stroke. EEG done according to neurology recommendation did not show any seizure spikes. Orthostatic vitals checked was negative Patient remained awake and alert, no seizures, she was ambulatory without support during the hospital stay. Severe BP elevations improved with antihypertensives. Daughter reports patient has a history of schizophrenia but has been noncompliant with her medications. Patient is on Seroquel which was restarted during the hospital stay. Diet: AHA Activity: Fall precautions Followup: Odilon Salazar FNP [Primary Care Provider] - 1-2 Weeks Time spent managing pt's care (in minutes): 33
== END 2025-02-06 15:00 | disposition home or self-care (01) ==
LOC: ER 19:52 → 3RD-ICU 02-05 05:20
PROVIDERS: ADMIT Internal Medicine; ATTEND Internal Medicine
DX: R55 Syncope and collapse (principal); R41.0 Disorientation, unspecified; F20.9 Schizophrenia, unspecified; G30.9 Alzheimer's disease, unspecified; F02.80 Dementia in other diseases classified elsewhere, unspecified severity, without behavioral disturbance, psychotic disturbance, mood disturbance, and anxiety; I10 Essential (primary) hypertension; Z91.148 Patient's other noncompliance with medication regimen for other reason; W19.XXXA Unspecified fall, initial encounter; Y93.9 Activity, unspecified; Y92.019 Unspecified place in single-family (private) house as the place of occurrence of the external cause
CPT/HCPCS: 36415; 70450; 70551; 71045; 71250; 72125; 74176; 80048; 80053; 80076; 82550; 83735; 83880; 84439; 84443; 84484; 85025; 85610; 93005; 93880; 95819; 96360; 99285; G0378; J1650; J7030; J7040